=== PATIENT | female | born 2000 | race Caucasian/White ===

== ENCOUNTER 2020-08-23 14:05 | Emergency (ER) | payer BC, MEDICAID ==
[~2020-08-23] VITALS: Ht 170.2 cm; Wt 75.0 kg
[2020-08-23 14:20] VITALS: BP 129/84
[2020-08-23] MEDS ORDERED: LIDOcaine 5% patch TP STA (16:03)
[2020-08-23] MEDS ORDERED: ketorolac tromethamine 15mg/ml inj. IM ONE (16:05)
[2020-08-23] MEDS ORDERED: ondansetron 4mg rapidly disintigrating tab PO ONE (16:40)
[2020-08-23] MEDS ORDERED: cyclobenzaprine 10mg tablet PO ONE (16:40)
[2020-08-23] MEDS ORDERED: CYCL-1 PO (16:59)
[2020-08-23] MEDS ORDERED: LIDO700A32 TOP (16:59)
== END 2020-08-23 17:24 | disposition home or self-care (01) ==
LOC: ER 14:05
DX: S39.012A Strain of muscle, fascia and tendon of lower back, initial encounter (principal); Z79.899 Other long term (current) drug therapy; X58.XXXA Exposure to other specified factors, initial encounter; Y93.89 Activity, other specified; Y92.89 Other specified places as the place of occurrence of the external cause; Y99.8 Other external cause status
CPT/HCPCS: 72100; 96372; 99284; J1885

== ENCOUNTER 2022-08-19 05:19 | Emergency (ER) | payer MEDICAID ==
[~2022-08-19] VITALS: Ht 170.2 cm; Wt 79.0 kg
[~2022-08-19 05:19] MED LIST: CYCL-1 PO; LIDO700A32 TOP
[2022-08-19 06:04] LABS: BASOPHILS % (AUTO) 0.6 % (0-1); EOSINOPHILS # (AUTO) 0.1 X10'3 (0-0.9); EOSINOPHILS % (AUTO) 1.5 % (0-6); HEMATOCRIT 37.7 % (35.0-45.0); HEMOGLOBIN 12.8 g/dl (12.0-16.0); LYMPHOCYTES # (AUTO) 1.5 X10'3 (1.1-4.8); MEAN CORPUSCULAR HEMOGLOBIN 30.1 PG (27.0-31.0); MEAN CORPUSCULAR HGB CONC 33.8 g/dL (33.0-36.5); MEAN CORPUSCULAR VOLUME 89.1 FL (78-98); MEAN PLATELET VOLUME 7.5 FL (7.4-10.4); MONOCYTES # (AUTO) 0.6 X10'3 (0-0.9); MONOCYTES % (AUTO) 9.5 % (2-12); NEUTROPHILS # (AUTO) 4.1 X10'3 (1.8-7.7); NEUTROPHILS % (AUTO) 64.4 % (42-75); PLATELET COUNT 218 X10'3 (140-440); RED BLOOD COUNT 4.24 X10'6 (4.20-5.60); RED CELL DISTRIBUTION WIDTH 13.9 % (11.5-14.5); WHITE BLOOD COUNT 6.4 X10'3 (4.5-11.0)
[2022-08-19 06:27] LABS: ALANINE AMINOTRANSFERASE 36 U/L (12-78); ALBUMIN 3.5 G/DL (3.4-5.0); ALBUMIN/GLOBULIN RATIO 0.9 (1.1-1.5); ALKALINE PHOSPHATASE 59 IU/L (46-116); ANION GAP 9 (8-16); ASPARTATE AMINO TRANSFERASE 29 U/L (10-37); BILIRUBIN,TOTAL 0.8 MG/DL (0.1-1.0); BLOOD UREA NITROGEN 14 MG/DL (7-18); BUN/CREATININE RATIO 19.7 (6.6-38.0); CHLORIDE 101 MMOL/L (99-107); CREATININE 0.71 MG/DL (0.40-0.90); GLUCOSE 109 MG/DL (70-104); MAGNESIUM 1.7 MG/DL (1.5-2.4); POTASSIUM 3.4 MMOL/L (3.5-5.1); SODIUM 136 MMOL/L (135-145); TOTAL CARBON DIOXIDE 25.9 MMOL/L (24-32); TOTAL PROTEIN 7.3 G/DL (6.4-8.2); eGFR > 90 ML/MIN
[2022-08-19 07:28] LABS: URINE HCG NEGATIVE (NEG)
[2022-08-19 07:29] LABS: CLARITY,URINE SLIGHTLY CLOUDY (Clear); COLOR,URINE YELLOW (Yellow); GLUCOSE, URINE NEGATIVE (Neg); KETONES,URINE NEGATIVE (Neg); LEUKOCYTE ESTERASE ,URINE NEGATIVE (Neg); NITRITES, URINE NEGATIVE (Neg); OCCULT BLOOD,URINE NEGATIVE (Neg); PROTEIN,URINE NEGATIVE (Neg); UROBILINOGEN,URINE 0.2 E.U/dL (0.2-1.0)
[2022-08-19 07:35] LABS: UA COLLECTION TYPE CLN CATCH MIDSTREAM
[2022-08-19 07:38] LABS: D-DIMER < 0.19 MG/L FEU (0-0.50)
[2022-08-19 07:38] LABS: RBC,URINE NONE SEEN /HPF (0-2); WBC,URINE NONE SEEN /HPF (0-4)
[2022-08-19 07:39] LABS: BACTERIA,URINE 2+ /HPF (Neg); MUCUS STRANDS FEW /LPF (Neg); SQUAMOUS EPITHELIAL CELL,UR MANY /LPF (FEW)
[2022-08-19 07:45] LABS: URINE AMPHETAMINE SCREEN NEGATIVE (Neg); URINE BARBITUATE SCREEN NEGATIVE (Neg); URINE BENZODIAZEPINES SCREEN NEGATIVE (Neg); URINE CANNABINOID SCREEN NEGATIVE (Neg); URINE COCAINE SCREEN NEGATIVE (Neg); URINE METHADONE SCREEN NEGATIVE (Neg); URINE OPIATE SCREEN POSITIVE (Neg); URINE PHENCYCLIDINE SCREEN NEGATIVE (Neg)
[2022-08-19] MEDS ORDERED: ringers solution, lacted 1,000 ML IV ONE (07:45)
[2022-08-19] MEDS ORDERED: POTASSIUM BICARB 20meq eff tab 20 MEQ TABLET.EFF PO ONE (07:45)
[2022-08-19 07:47] LABS: PHOSPHORUS 3.3 MG/DL (2.3-4.5)
[2022-08-19] MEDS ORDERED: LORazepam 1 MG tablet PO ONE (09:00)
[2022-08-19 09:15] VITALS: BP 141/89
--- NOTE | 2022-08-19 09:33 | NUR ---
PT WAS ADMINISTERED MEDICATION ORDERED AND DISCHARGED BY [facility].
== END 2022-08-19 09:34 | disposition home or self-care (01) ==
LOC: ER 05:20
DX: R00.2 Palpitations (principal); R11.0 Nausea; R42 Dizziness and giddiness; E87.6 Hypokalemia; G89.29 Other chronic pain; M54.9 Dorsalgia, unspecified
CPT/HCPCS: 36415; 80053; 80305; 81001; 81025; 83735; 83880; 84100; 84439; 84443; 84484; 85025; 85379; 93005; 96360; 99284; J7120